=== PATIENT | female | born 1990 | race Hispanic/Latino ===

== ENCOUNTER 2021-07-31 16:00 | Inpatient (IN) | payer BC ==
[~2021-07-31] VITALS: Ht 152.4 cm; Wt 83.9 kg
[2021-07-31 15:37] LABS: BASOPHILS % (AUTO) 0.2 % (0.0-5.0); EOSINOPHILS % (AUTO) 0.4 % (0.0-8.0); HEMATOCRIT 39.3 % (36-48); MEAN CORPUSCULAR HGB CONC 33.8 g/dL (32.0-36.0); MEAN CORPUSCULAR VOLUME 85.8 fL (79-99); MONOCYTES % (AUTO) 5.3 % (3.0-13.0); NEUTROPHILS % (AUTO) 78.8 % (40.0-77.0); PLATELET COUNT (AUTO) 189 K/uL (130-400); RED BLOOD CELL COUNT(AUTO) 4.58 MIL/uL (4.00-5.50); WHITE BLOOD COUNT (AUTO) 11.9 K/uL (4.8-10.8)
[2021-08-01 08:50] LABS: RAPID PLASMA REAGIN NONREACTIVE (NONREACTIVE)
[2021-08-01] MEDS ORDERED: CEFAZOLIN SODIUM 2 GM VIAL IV SCH (09:00)
[2021-08-03] MEDS ORDERED: LACTATED RINGERS 1000ML 1,000 ML IV SCH (05:30)
[2021-08-03] MEDS ORDERED: CITRIC ACID/SODIUM CITRATE 30 ML UDCUP PO PRN (05:30)
[2021-08-03] MEDS ORDERED: CALDOLOR 800MG+NS 250ML 250 ML IV PRN (05:30)
[2021-08-03 06:31] LABS: HEMATOCRIT 37.4 % (36-48); MEAN CORPUSCULAR HGB CONC 33.7 g/dL (32.0-36.0); MEAN CORPUSCULAR VOLUME 86.2 fL (79-99); RED BLOOD CELL COUNT(AUTO) 4.34 MIL/uL (4.00-5.50); RED CELL DISTRIBUTION WIDTH 12.9 % (11.0-15.5)
[2021-08-03] MEDS ORDERED: CEFAZOLIN SODIUM 1 GM VIAL ONE (07:13)
[2021-08-03] MEDS ORDERED: CEFAZOLIN SODIUM 1 GM VIAL IVP PRN (07:30)
[2021-08-03] MEDS ORDERED: MORPHINE PF 100MG/10ML AMP IV ONE (07:32)
[2021-08-03] MEDS ORDERED: CEFAZOLIN SODIUM 2 GM VIAL IV ONE (07:39)
[2021-08-03] MEDS ORDERED: ONDANSETRON 4MG INJ ONE (07:44)
[2021-08-03 07:45] LABS: AMPHET/METH SCREEN,URINE NEGATIVE (NEGATIVE); BARBITURATE SCREEN, URINE NEGATIVE (NEGATIVE); BENZODIAZEPINES SCREEN,URINE NEGATIVE (NEGATIVE); CANNABINOID SCREEN,URINE NEGATIVE (NEGATIVE); COCAINE SCREEN,URINE NEGATIVE (NEGATIVE); OPIATE SCREEN,URINE NEGATIVE (NEGATIVE); PHENCYCLIDINE SCREEN,URINE NEGATIVE (NEGATIVE)
[2021-08-03] MEDS ORDERED: EPHEDRINE SULFATE 50 MG/ML AMPULE ONE (07:47)
[2021-08-03] MEDS ORDERED: OXYTOCIN 10 USP UNITS/ML ONE (07:52)
[2021-08-03] MEDS ORDERED: OXYTOCIN 10 UNIT/1ML 10ML VIAL ONE (07:52)
[2021-08-03] MEDS: OXYTOCIN-LR 20 UNITS/1000 ML 1,000 ML IV PRN ×2 (08:00→09:32)
[2021-08-03] MEDS ORDERED: 0.9%NACL 10ML VIAL IVP PRN (08:30)
[2021-08-03] MEDS ORDERED: MEPERIDINE-PF 75 MG/ML SYG IM PRN (08:30)
[2021-08-03] MEDS: CALDOLOR 800MG+NS 250ML 250 ML IV SCH ×2 (08:30→16:41)
[2021-08-03] MEDS ORDERED: PROMETHAZINE HCL 25 MG/ML 1ML AMPULE IM PRN (08:30)
[2021-08-03] MEDS ORDERED: EPHEDRINE SULFATE 50 MG/ML AMPULE IVP PRN (09:00)
[2021-08-03] MEDS ORDERED: DiphenhydrAMINE HCL 50 MG/ML VIAL IVP PRN (09:00)
[2021-08-03] MEDS ORDERED: NALOXONE HCL 0.4 MG/1 ML ML IVP PRN ×3 (09:00)
[2021-08-03] MEDS: ONDANSETRON 4MG INJ IVP PRN ×2 (09:56→12:04)
[2021-08-03 10:40] VITALS: BP 119/79
[2021-08-03] MEDS ORDERED: LEVO75TA4 PO (10:53)
[2021-08-03] MEDS ORDERED: PREN-196 PO (10:53)
[2021-08-03 16:11] VITALS: BP 125/73
[2021-08-03] MEDS: DEXTROSE 5 %-0.45 % NACL 1,000 ML IV PRN (16:45)
[2021-08-03 19:10] VITALS: BP 120/76
[2021-08-03] MEDS ORDERED: ACETAMINOPHEN WITH CODEINE 1 TAB TAB PO PRN (20:30)
[2021-08-03 23:00] VITALS: BP 113/77
[2021-08-04] MEDS: CALDOLOR 800MG+NS 250ML 250 ML IV SCH (00:37)
[2021-08-04] MEDS: DEXTROSE 5 %-0.45 % NACL 1,000 ML IV PRN (03:51)
[2021-08-04 03:56] VITALS: BP 120/71
[2021-08-04] MEDS ORDERED: DIPH,PERTUSS(ACELL),TET VAC/PF 0.5 ML VIAL IM ONE (05:30)
[2021-08-04 06:31] LABS: HEMATOCRIT 32.4 % (36-48); MEAN CORPUSCULAR HGB CONC 33.3 g/dL (32.0-36.0); MEAN CORPUSCULAR VOLUME 86.9 fL (79-99); RED BLOOD CELL COUNT(AUTO) 3.73 MIL/uL (4.00-5.50); RED CELL DISTRIBUTION WIDTH 13.2 % (11.0-15.5); WHITE BLOOD COUNT (AUTO) 12.3 K/uL (4.8-10.8)
[2021-08-04 07:40] VITALS: BP 121/75
[2021-08-04] MEDS ORDERED: SIMETHICONE 80 MG TAB.CHEW PO PRN (08:30)
[2021-08-04] MEDS ORDERED: ACETAMINOPHEN 500 MG TABLET PO PRN (08:30)
[2021-08-04] MEDS ORDERED: HYDROCODONE/ACETAMINOPHEN 5/325 MG TAB PO PRN (08:30)
[2021-08-04] MEDS ORDERED: IBUPROFEN 800 MG TAB PO SCH (08:30)
[2021-08-04] MEDS ORDERED: BISACODYL 10 MG SUPP.RECT RC PRN (08:30)
[2021-08-04] MEDS ORDERED: ACETAMINOPHEN WITH CODEINE 1 TAB TAB PO PRN (08:30)
[2021-08-04] MEDS ORDERED: DOCUSATE SODIUM 100 MG CAP PO SCH (09:00)
[2021-08-04 11:45] VITALS: BP 130/70
[2021-08-04] MEDS ORDERED: DOCU-116 PO (12:57)
[2021-08-04] MEDS ORDERED: IBUP-2077 PO (12:57)
[2021-08-04] MEDS ORDERED: ACET-2079 PO (12:58)
[2021-08-04 15:30] VITALS: BP 108/76
== END 2021-08-04 15:40 | disposition home or self-care (01) | DRG 788 ==
LOC: LDH 08-03 05:25 → WSH 08-03 10:35
PROVIDERS: ADMIT Obstetrics & Gynecology; ATTEND Obstetrics & Gynecology
PROC: 10D00Z1 Extraction of Products of Conception, Low, Open Approach (ICD-10-PCS; principal; 2021-08-03 07:30)
PROC: 3E0234Z Introduction of Serum, Toxoid and Vaccine into Muscle, Percutaneous Approach (ICD-10-PCS; 2021-08-04)
DX: O34.211 Maternal care for low transverse scar from previous cesarean delivery (principal); O99.284 Endocrine, nutritional and metabolic diseases complicating childbirth; E03.9 Hypothyroidism, unspecified; Z3A.39 39 weeks gestation of pregnancy; Z37.0 Single live birth; O99.62 Diseases of the digestive system complicating childbirth; K66.0 Peritoneal adhesions (postprocedural) (postinfection); Z23 Encounter for immunization
CPT/HCPCS: 36415; 59510; 80305; 85025; 85027; 86592; 86701; 86850; 86900; 86901; 87340; 87390; 87635; 90715; A4344; G0378; J0690; J1741; J2274; J2405; J2590; J3490; J7120